=== PATIENT | male | born 1995 | race Caucasian/White ===

== ENCOUNTER 2020-11-26 03:18 | Emergency (ER) | payer SELFPAY ==
[~2020-11-26] VITALS: Ht 175.3 cm; Wt 65.8 kg
--- NOTE | 2020-11-26 04:09 | NUR ---
Patient's ex girlfriend coming to pick patient up
--- NOTE | 2020-11-26 04:45 | NUR ---
Patient's ex girlfriend here to take patient home. Patient is [id number]. walks with steady gait. Patient discharged to home in stable condition. Written and verbal after care instructions given. Patient verbalizes understanding of instructions. Stressed follow up or return to ER for worsening s/s.
[2020-11-26 04:46] VITALS: BP 128/71
== END 2020-11-26 04:47 | disposition home or self-care (01) ==
LOC: ER 03:20
DX: F10.129 Alcohol abuse with intoxication, unspecified (principal); F32.9 Major depressive disorder, single episode, unspecified; Z79.899 Other long term (current) drug therapy
CPT/HCPCS: A4663